=== PATIENT | female | born 1940 | race Caucasian/White ===

== ENCOUNTER → 2017-03-12 | Outpatient (CLI) | payer OTHER, MEDICARE ==
[~2017-03-12] MED LIST: APAP500 PO; ASPIR 8181 MG PO; BONIVA150 MG PO; CALCIUM 500+D1 EAC2 PO; CENESTIN0.45 MG PO; COLACE100 MG PO; COUMADIN 5 MG TA5 M1 PO; DESYREL50 MG PO; DETROL LA4 MG PO; DULCOLAX10 MG RC; ENOXAPARIN80 MG/0.1 SUBQ; ESTRACE0.5 MG PO; ETODOLAC 400 M400 M1 PO; HCTZ PO; IRON325 PO; KLOR-CON 1010 MEQ PO; LOPERAMIDE 2 MG2 M1 PO; LORTAB 5 MG/5001 TA1 PO; MACROBID 100 M100 M2; MIRALAX17 GM PO; MYRBETRIQ25 MG PO; ONDANSETRON HCL4 M2 PO; OXYTROL3.9 MG/PAT TRANSDERM; PAXIL10 MG; SIMVASTATIN40 MG PO; TYLENOL P.M. E1 EAC3; VOLTAREN GEL 1100 G2 TOP
[2017-03-12 10:27] LABS: ABSOLUTE NEUTROPHILS 7.1 thou/uL (1.4-8.2); BASOPHILS 0.9 % (0.0-2.0); EOSINOPHILS 1.2 % (0.0-3.0); HEMATOCRIT 37.5 % (37.0-47.0); HEMOGLOBIN 12.1 gm/dL (12.0-15.0); LYMPHOCYTES 19.1 % (24.0-44.0); MCH 29.5 pg (26.0-34.0); MCHC 32.3 g/dL (28.0-37.0); MCV 91.4 fL (80.0-100.0); MONOCYTES 6.4 % (1.0-8.0); POLYS 72.4 % (36.0-66.0); RDW 14.2 % (10.5-14.5); WBC 9.9 thou/uL (4.0-11.0)
[2017-03-12 10:30] LABS: MANUAL DIFF NO
[2017-03-12 10:38] LABS: CALCIUM 8.9 mg/dL (8.5-10.1); CREATININE 0.6 mg/dL (0.6-1.0); POTASSIUM 3.8 mmol/L (3.5-5.1)
[2017-03-12 10:43] LABS: ALBUMIN 3.4 g/dL (3.4-5.0); TOTAL BILIRUBIN 0.3 mg/dL (<0.1-1.0); TOTAL PROTEIN 7.3 g/dL (6.4-8.2)
[2017-03-12 11:39] LABS: PLATELET COUNT 208 thou/uL (150-400); PLATELET ESTIMATE NORMAL
== END ==
LOC: CAT 09:24
PROVIDERS: Family Medicine
DX: R06.00 Dyspnea, unspecified (principal); I26.99 Other pulmonary embolism without acute cor pulmonale; J98.11 Atelectasis

== ENCOUNTER → 2017-03-13 | Outpatient (CLI) | payer OTHER, MEDICARE | LOC: ULTRA 15:18 | DX: R79.89 Other specified abnormal findings of blood chemistry (principal); M79.604 Pain in right leg; M79.605 Pain in left leg ==

== ENCOUNTER → 2017-08-11 | Outpatient (CLI) | payer OTHER, MEDICARE | LOC: NUC 13:23 | DX: M85.89 Other specified disorders of bone density and structure, multiple sites (principal); M15.0 Primary generalized (osteo)arthritis; Z78.0 Asymptomatic menopausal state ==

== ENCOUNTER → 2020-07-05 | Outpatient (CLI) | payer OTHER, MEDICARE | LOC: SJCVC 11:05 | PROVIDERS: ATTEND Internal Medicine | DX: R00.1 Bradycardia, unspecified (principal); I11.9 Hypertensive heart disease without heart failure; Z79.899 Other long term (current) drug therapy; Z86.711 Personal history of pulmonary embolism ==